=== PATIENT | male | born 1955 | race Caucasian/White ===

== ENCOUNTER 2021-11-25 13:18 | Emergency (ER) | payer OTHER, SELFPAY ==
[2021-11-25 13:57] VITALS: BP 177/107; PULSE 65; RESP 18; TEMP 36.9; O2SAT 96; BMI 35.7
--- NOTE | 2021-11-25 15:00 | ED.GENADULT ---
HPI - General Adult General Date Seen: 11/25/21 Chief complaint: Laceration/Wound Stated complaint: R Pointer Finger Lac Time Seen by Provider: 11/25/21 14:02 Source: patient History of Present Illness HPI narrative: Patient is a 66-year-old male who reports that he was chopping up from a tomatoes for salsa. He nicked his left 3rd finger, and then in frustration apparently swiped the knife across his right hand, lacerating his right index finger much deeper than the left 3rd finger. He says his relative who is a medical research scientist bandaged his left finger, and that does not need any further attention. However, the deeper laceration in his right index finger require stitches. He denies any numbness or loss of function. Immunizations are up-to-date. Related Data Allergies Allergy/AdvReac Type Severity Reaction Status Date / Time Sulfa (Sulfonamide Allergy Verified 11/25/21 13:56 Antibiotics) Review of Systems Narrative: Otherwise noncontributory Exam Narrative: Exam Narrative: Vital signs reviewed In general, an alert, nontoxic male. Head: Normocephalic, atraumatic. Extremities: Examination of the right hand shows a 2 cm laceration of the right index finger on the palmar surface at the level of the D IP joint. He has intact flexion and extension at the D IP joint. Distal sensation is normal. Brisk venous bleeding is noted from the wound. No other injury to the hand. Left finger was bandaged and was not examined. Skin: Warm and dry. Well perfused. Otherwise intact. Neurologic: Alert, conversant. Gait stable. Affect: Normal. Const: Vital Signs, click to edit/add: Vital Signs - 24 hr 11/25/21 13:57 Temperature 98.4 F Pulse Rate [Right Pulse Oximeter] 65 Respiratory Rate 18 Blood Pressure [Ri ght Upper Arm] 177/107 H Pulse Oximetry 96 Oxygen Delivery Me thod Room Air Course Course Hospital Course: Procedure note: The wound on the right index finger was anesthetized with lidocaine and epinephrine. Wound was explored, no evidence of injury to deeper structures such as tendon. No foreign body. I closed the wound using 5 0 nylon. A total of 6, simple interrupted superficial sutures were placed. He tolerated this well without immediate complication. A dressing is placed by the stage technician. We discussed suture removal, which he says will need to be done by a family member as he is going to be in [place] for the next couple of weeks. Routine wound care, should be seen again for signs of infection. Vital Signs Vital signs: Initial Vital Signs Temperature 98.4 F 11/25/21 13:57 Temperature Source Temporal Artery Scan 11/25/21 13:57 Pulse Rate 65 11/25/21 13:57 Respiratory Rate 18 11/25/21 13:57 Blood Pressure 177/107 H 11/25/21 13:57 Blood Pressure Mean 130 11/25/21 13:57 Blood Pressure Position Sitting 11/25/21 13:57 Pulse Oximetry 96 11/25/21 13:57 Oxygen Delivery Method 11/25/21 13:57 Vital Signs Temperature 98.4 F 11/25/21 13:57 Pulse Rate 65 11/25/21 13:57 Respiratory Rate 18 11/25/21 13:57 Blood Pressure 177/107 H 11/25/21 13:57 Pulse Oximetry 96 11/25/21 13:57 Oxygen Delivery Method 11/25/21 13:57 Temperature 98.4 F 11/25/21 13:57 Pulse Rate 65 11/25/21 13:57 Respiratory Rate 18 11/25/21 13:57 Blood Pressure 177/107 H 11/25/21 13:57 Pulse Oximetry 96 11/25/21 13:57 Oxygen Delivery Method 11/25/21 13:57 Discharge Plan Discharge Clinical Impression: Laceration of right index finger Patient Disposition: Home, Self-Care Condition: Improved Instructions: Finger Laceration (ED) Additional Instructions: Routine wound care. Suture removal in about 10 days. Return for signs of infection. Stand Alone Forms: [facility] Info Instructions
== END 2021-11-25 15:10 | disposition home or self-care (01) ==
LOC: ED 14:43
PROVIDERS: Emergency Provider Emergency Medicine
DX: S61.210A Laceration without foreign body of right index finger without damage to nail, initial encounter (principal); W26.0XXA Contact with knife, initial encounter; Y93.G3 Activity, cooking and baking; Y92.010 Kitchen of single-family (private) house as the place of occurrence of the external cause; Y99.8 Other external cause status
CPT/HCPCS: 12001; 99283